=== PATIENT | male | born 1930 | race Caucasian/White ===

== ENCOUNTER → 2016-07-25 | Outpatient (REF) | payer MEDICARE, OTHER ==
[2016-07-25 14:02] LABS: PERCENT SATURATION 27.1 % (19.7-37.4)
== END ==
LOC: M LAB REF 13:28
PROVIDERS: ATTEND Internal Medicine
DX: D64.9 Anemia, unspecified (principal)

== ENCOUNTER 2017-08-29 06:26 | Day surgery (SDC) | payer MEDICARE, OTHER ==
[~2017-08-29 06:26] MED LIST: SLF 3 ML SYR IV
[2017-08-29] MEDS: OFLOXACIN 0.3 % (OCUFLOX) OPTH SOL 5ML OS (06:58)
[2017-08-29] MEDS: PROPARACAINE 0.5% OPHTH SOL 15ML OS (06:58)
[2017-08-29] MEDS: PHENYLEPHRINE 2.5% OPHTH SOL 2ML OS (06:58)
[2017-08-29] MEDS: TROPICAMIDE 1% OPHTH SOLN 2ML OS (06:58)
[2017-08-29] MEDS ORDERED: MIDAZOLAM INJ 2 MG/2 ML VIAL (J2250) As Ordered (07:54)
[2017-08-29] MEDS ORDERED: fentaNYL 100 MCG/2 ML INJECTION (J3010) As Ordered (07:54)
[2017-08-29] MEDS: BALANCED SALT IRRIGATION SOLUTION 500ML BAG (FOR OR EYE MACHINE) As Ordered (08:08)
[2017-08-29] MEDS: POVIDONE-IODINE 5% OPHTH PREP SOL 30ML As Ordered (08:08)
[2017-08-29] MEDS: LIDOCAINE 1% SDV 5 ML VIAL As Ordered (08:08)
[2017-08-29] MEDS: DUOVISC (0.50ML VISCOAT/0.55ML PROVISC) OPHTH KIT As Ordered (08:08)
[2017-08-29] MEDS: CEFUROXIME 1MG/0.1ML INTRACAMERAL INJ As Ordered (08:09)
== END 2017-08-29 08:58 | disposition home or self-care (01) ==
LOC: M SDC 06:26
DX: H25.12 Age-related nuclear cataract, left eye (principal); I50.9 Heart failure, unspecified; Z85.46 Personal history of malignant neoplasm of prostate; Z79.82 Long term (current) use of aspirin; Z79.899 Other long term (current) drug therapy
CPT/HCPCS: 66984

== ENCOUNTER 2017-09-05 06:50 | Day surgery (SDC) | payer MEDICARE, OTHER ==
[2017-09-05] MEDS: PROPARACAINE 0.5% OPHTH SOL 15ML OD (07:19)
[2017-09-05] MEDS: PHENYLEPHRINE 2.5% OPHTH SOL 2ML OD (07:20)
[2017-09-05] MEDS: TROPICAMIDE 1% OPHTH SOLN 2ML OD (07:20)
[2017-09-05] MEDS: OFLOXACIN 0.3 % (OCUFLOX) OPTH SOL 5ML OD (07:20)
[2017-09-05] MEDS ORDERED: fentaNYL 100 MCG/2 ML INJECTION (J3010) As Ordered (08:03)
[2017-09-05] MEDS ORDERED: MIDAZOLAM INJ 2 MG/2 ML VIAL (J2250) As Ordered (08:03)
[2017-09-05] MEDS: POVIDONE-IODINE 5% OPHTH PREP SOL 30ML As Ordered (08:29)
[2017-09-05] MEDS: LIDOCAINE 0.75%/EPINEPHRINE 0.025% IN BSS 1ML SYR INTRACAMERAL (OR ONLY) As Ordered (08:31)
[2017-09-05] MEDS: BALANCED SALT IRRIGATION SOLUTION 500ML BAG (FOR OR EYE MACHINE) As Ordered (08:31)
[2017-09-05] MEDS: DUOVISC (0.50ML VISCOAT/0.55ML PROVISC) OPHTH KIT As Ordered (08:34)
[2017-09-05] MEDS: CEFUROXIME 1MG/0.1ML INTRACAMERAL INJ As Ordered (08:37)
== END 2017-09-05 09:30 | disposition home or self-care (01) ==
LOC: M SDC 06:50
DX: H25.11 Age-related nuclear cataract, right eye (principal); I10 Essential (primary) hypertension; K21.9 Gastro-esophageal reflux disease without esophagitis; Z79.899 Other long term (current) drug therapy; Z79.82 Long term (current) use of aspirin
CPT/HCPCS: 66984

== ENCOUNTER → 2020-02-16 | Outpatient (CLI) | payer SELFPAY ==
[~2020-02-16] MED LIST changes: +ASPI1CHW2 PO; +HYDR25TAB PO; +LACT20EL PO; +OMEP1CAP73 PO; +SIMV40TA20 PO; -SLF 3 ML SYR IV
== END ==
LOC: M LABSMTC 13:28
PROVIDERS: ATTEND Pediatrics
DX: Z20.828 Contact with and (suspected) exposure to other viral communicable diseases (principal)

== ENCOUNTER 2020-11-19 22:42 | Emergency (ER) | payer MEDICARE, OTHER ==
[~2020-11-19] VITALS: Ht 175.3 cm; Wt 63.6 kg
[~2020-11-19 22:42] MED LIST changes: +HYDR-3490 PO; -HYDR25TAB PO
[2020-11-20] MEDS ORDERED: LIDOCAINE 5% (LIDODERM) PATCH TD ONE (00:55)
[2020-11-20] MEDS ORDERED: ACETAMINOPHEN 500 MG TAB PO ONE (00:55)
[2020-11-20] MEDS ORDERED: methocarbamoL 750 MG TAB PO ONE (00:55)
--- NOTE | 2020-11-20 01:40 | REPVR ---
PROCEDURE INFORMATION: Exam: CT Lumbar Spine Without Contrast Exam date and time: 11/20/2020 1:03 AM Age: 89 years old Clinical indication: Low back pain; Additional info: Pain after gardening, low back, left side, shoots to thigh L TECHNIQUE: Imaging protocol: Computed tomography images of the lumbar spine without contrast. Radiation optimization: All CT scans at this facility use at least one of these dose optimization techniques: automated exposure control; mA and/or kV adjustment per patient size (includes targeted exams where dose is matched to clinical indication); or iterative reconstruction. COMPARISON: No relevant prior studies available. FINDINGS: Vertebrae: Mild anterolisthesis of L4 on L5, degenerative in nature. Small nonspecific sclerotic lesions in the left ilium, left sacrum, L3, and L5 vertebra. Mild dextroscoliosis. Discs/Spinal canal/Neural foramina: Multilevel degenerative disease and facet arthropathy. 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 Bilateral neural foraminal stenosis at L4-L5. Sacrum/coccyx: Severe degenerative changes in the bilateral sacroiliac joints. Other bones/joints: Osteopenia. 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 Lytic lesion with endosteal scalloping is noted in the left ilium. Lungs: Linear atelectasis or scarring at the bilateral lung bases. Mucoid impaction at the right lung base. Kidneys and ureters: Nonspecific bilateral perinephric fat stranding. Stomach and bowel: Diverticulosis of colon. No evidence of acute diverticulitis. 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 Vasculature: Atherosclerotic disease of the abdominal aorta. Soft tissues: Unremarkable. IMPRESSION: No acute fractures. Severe osteoarthritis the left hip. 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 Bilateral neural foraminal stenosis at L4-L5. Lytic lesion with endosteal scalloping is noted in the left ilium. Electronically signed by: Daniel Springer On 11/20/2020 01:40:18 AM
[2020-11-20] MEDS ORDERED: traMADol 50 MG TAB PO ONE (02:05)
[2020-11-20] MEDS ORDERED: ASPE4PAD TOP (03:06)
[2020-11-20] MEDS ORDERED: TRAM50TA2 PO (03:06)
[2020-11-20 03:22] VITALS: BP 156/74
[2020-11-20] MEDS ORDERED: **NOTE PATIENT COMMENT** MISC XX SCH (21:00)
== END 2020-11-20 03:23 | disposition home or self-care (01) ==
LOC: M ED 22:42
DX: M54.5 Low back pain (principal); M16.12 Unilateral primary osteoarthritis, left hip; M89.50 Osteolysis, unspecified site; I10 Essential (primary) hypertension; Z79.899 Other long term (current) drug therapy; Z79.82 Long term (current) use of aspirin

== ENCOUNTER → 2020-11-22 | Outpatient (REF) | payer MEDICARE, OTHER ==
[~2020-11-22] MED LIST changes: +ASPE4PAD TOP; +TRAM50TA2 PO
[2020-11-22 18:06] LABS: TOTAL PROTEIN 7.1 GM/DL (6.4-8.2)
== END ==
LOC: M LAB REF 16:48
PROVIDERS: ATTEND Internal Medicine
DX: M25.551 Pain in right hip (principal)

== ENCOUNTER → 2020-11-29 | Outpatient (CLI) | payer MEDICARE, OTHER ==
--- NOTE | 2020-11-29 18:19 | REP ---
INDICATION: Other biomechanical lesions of pelvic region. Lytic lesion with endosteal scalloping of the right ilium. COMPARISON: Comparison CT study lumbar spine November 20, 2020. TECHNIQUE: Sixty-five minutes following the intravenous injection of a 8.62 mCi dose of F-18 FDG, three-dimensional PET scintigraphy is acquired from the skull vertex to the toes. Triplanar noncontrast CT scanning is acquired through the same anatomic range for attenuation correction, and image registration with scan parameters optimized to minimize radiation exposure to the patient. PET scintigraphy and CT datasets were fused and displayed on a workstation with multiplanar and projection display capability. FINDINGS: Head and neck soft tissues are unremarkable and symmetric. There is a bilateral lower lobe linear fibrosis in the lung bruno. No abnormal intrathoracic hypermetabolic uptake is seen. Low level non hypermetabolic uptake is seen in right hilar, left hilar, and the subcarinal lymph node regions. This is similar to blood pool uptake. No definite adenopathy. In the abdomen and pelvis, normal hepatic, splenic, gastrointestinal, and genitourinary FDG accumulation is seen. No abnormal hypermetabolic uptake is seen in the abdomen or pelvis. The radiolucent lesion in the right iliac bone is again seen. On accompanying CT, it is noted that the interior of this lesion is homogeneously benign appearing macroscopic fat with mean Hounsfield unit density of -44.1. There is no hypermetabolic uptake here and this lesion is felt to be consistent with an intraosseous lipoma or fat deposit. It is felt to be benign. No abnormal skeletal hypermetabolic uptake is seen. PET scintigraphy is otherwise unremarkable. IMPRESSION: Linear fibrosis versus platelike atelectasis in the lower lobes of the lungs bilaterally. No abnormal skeletal hypermetabolic uptake. The radiolucency in the right iliac bone is seen to be benign lipoma or fat deposition. <Electronically signed by Jerome Romero > 11/29/20 [id number]
== END ==
LOC: M PLARAD 14:08
PROVIDERS: ATTEND Internal Medicine
DX: R91.8 Other nonspecific abnormal finding of lung field (principal); D48.0 Neoplasm of uncertain behavior of bone and articular cartilage
CPT/HCPCS: 78816; A9552

== ENCOUNTER → 2020-12-08 | Outpatient (CLI) | payer MEDICARE, OTHER ==
--- NOTE | 2020-12-08 14:53 | REP ---
INDICATION: OSTEOARTHRITIS, EVAL FOR STRESS FX. COMPARISON: Radiographs 09/10/2012. TECHNIQUE: Axial CT with sagittal and coronal reconstruction images. FINDINGS: There is no evidence of acute fracture or dislocation. There are severe arthritic changes at the hip joint. There is severe joint space narrowing with associated subchondral sclerosis and cystic change on both sides of the joint. There is moderate diffuse spurring at the margins of the joint. The soft tissue structures surrounding the left hip are grossly unremarkable. Incidental note is made of sigmoid diverticulosis. Metallic clips are seen in the pelvis. IMPRESSION: Severe arthritic changes. No evidence of acute fracture or dislocation. <Electronically signed by Chauncey Fernandes > 12/08/20 [id number]
== END ==
LOC: M RAD 14:20
PROVIDERS: ATTEND Physician Assistant
DX: M16.12 Unilateral primary osteoarthritis, left hip (principal)

== ENCOUNTER → 2020-12-12 | Outpatient (CLI) | payer MEDICARE, OTHER ==
[~2020-12-12] MED LIST changes: +ISOVUE-300 61% 50ML VIAL As Ordered ONE; +LIDOCAINE 1% MDV 20ML VIAL As Ordered ONE; +methylPREDNISolone SUSP 40MG/ML 1ML VIAL (DEPO MEDROL) As Ordered ONE
--- NOTE | 2020-12-12 12:30 | REP ---
INDICATION: OSTEOARTHRITIS LT HIP, PAIN. COMPARISON: None TECHNIQUE: The procedure was performed by ANTHONY Blackwood, under the direct supervision of Dr. Fernandes. The benefits and risks of the procedure were explained to the patient, and an informed consent was obtained. Directly prior to the start of the procedure, a formal time-out was completed in the procedure room. The left femoral neck joint space was localized using fluoroscopic guidance. The skin was prepped and draped in a sterile fashion. Approximately 5 mL of 1% Lidocaine 10 mg/ml was used as a local anesthetic. Using fluoroscopic guidance, a #22 gauge spinal needle was inserted and advanced into the left femoral neck joint space. Approximately 2 mL of Isovue 300 was injected to verify placement. Seven mL of a solution containing 5 mL 1% lidocaine 10 mg/ml and 2 mL Depo-Medrol 40 milligrams/milliliter was injected into the joint space. The needle was removed and hemostasis was achieved. FINDINGS: The patient tolerated the procedure well and there were no immediate complications. IMPRESSION: 1. Fluoroscopically guided left hip intra-articular pain injection. 0.1 minutes of fluoroscopy time was utilized for this procedure. Some fluoroscopic images are performed with last image hold technology. These images require no additional radiation. <Electronically signed by Leidy Hurtado > 12/12/20 [id number] <Electronically signed by Chauncey Fernandes > 12/12/20 [id number]
== END ==
LOC: M RADPRO 09:47
PROVIDERS: ATTEND Physician Assistant
DX: M16.12 Unilateral primary osteoarthritis, left hip (principal)
CPT/HCPCS: 20610; 77002; J1030; Q9967